=== PATIENT | female | born 1970 | race Two or more races ===

== ENCOUNTER 2019-01-17 12:06 | Emergency (ER) | payer MEDICAID, SELFPAY ==
[~2019-01-17] VITALS: Ht 147.3 cm; Wt 66.9 kg
[2019-01-17] MEDS ORDERED: FAMOTIDINE 20 MG TABLET PO ONE (13:00)
[2019-01-17] MEDS ORDERED: FAMOTIDINE 20 MG TABLET ONE (14:36)
[2019-01-17 16:35] VITALS: BP 109/63
== END 2019-01-17 16:38 | disposition home or self-care (01) ==
LOC: ED 16:03
DX: L50.0 Allergic urticaria (principal); L24.3 Irritant contact dermatitis due to cosmetics
CPT/HCPCS: 99283; J7512